=== PATIENT | female | born 1995 | race Caucasian/White ===

== ENCOUNTER 2018-08-05 16:20 | Outpatient (CLI) | payer MEDICAID ==
[2018-08-05 18:32] LABS: RUPTURE FETAL MEMBRANES NEGATIVE (NEGATIVE)
== END 2018-08-05 20:26 | disposition home or self-care (01) ==
LOC: OBT 16:20 → L-D 16:21 → OBT 20:26
DX: O62.9 Abnormality of forces of labor, unspecified (principal); Z3A.35 35 weeks gestation of pregnancy
CPT/HCPCS: 76815; 76818; 84112

== ENCOUNTER 2018-09-12 19:57 | Inpatient (IN) | payer MEDICAID ==
[2018-09-12] MEDS ORDERED: OXYTOCIN 30 UNITS/LR 500 ML IV ×5 (21:30→23:30)
[2018-09-12] MEDS ORDERED: METHYLERGONOVINE 0.2 MG INJ IM ×2 (21:30→23:30)
[2018-09-12] MEDS ORDERED: LACTATED RINGER'S 1,000 ML IV* (21:30)
[2018-09-12] MEDS ORDERED: BUTORPHANOL 2 MG INJ IV ×2 (21:30→23:30)
[2018-09-12] MEDS ORDERED: IBUPROFEN 600 MG TAB PO (21:30)
[2018-09-12] MEDS ORDERED: MISOPROSTOL 200 MCG TAB PR ×3 (21:30→23:30)
[2018-09-12] MEDS ORDERED: LIDOCAINE 1% (MPF) 30 ML INJ INJ ×4 (21:30→23:30)
[2018-09-12] MEDS ORDERED: CARBOPROST 250 MCG INJ IM ×3 (21:30→23:30)
[2018-09-12 22:23] LABS: ADD MAN DIFF? NO
[2018-09-12 22:40] LABS: BASOPHILS % 0.3 % (0.0-2.0); EOSINOPHILS % 0.3 % (0.0-7.0); HEMATOCRIT 34.4 % (37.0-47.0); HEMOGLOBIN 11.6 g/dl (12.0-16.0); LYMPHOCYTES # 2.2 10^3/ul (0.8-2.9); LYMPHOCYTES % 22.7 % (15.0-51.0); MEAN CORPUSCULAR HEMOGLOBIN 28.9 pg (29.0-33.0); MEAN CORPUSCULAR HGB CONC 33.7 g/dl (32.0-37.0); MEAN CORPUSCULAR VOLUME 85.8 fl (82.0-101.0); MEAN PLATELET VOLUME 10.1 fl (7.4-10.4); MONOCYTE # 0.7 10^3/ul (0.3-0.9); MONOCYTES % 7.6 % (0.0-11.0); NEUTROPHIL # 6.6 10^3/ul (1.6-7.5); NEUTROPHILS % 68.6 % (39.0-77.0); PLATELET COUNT 198 10^3/UL (140-415); RED BLOOD COUNT 4.01 10^6/ul (4.20-5.40); RED CELL DISTRIBUTION WIDTH 13.6 % (11.5-14.5)
[2018-09-12 22:40] LABS: WHITE BLOOD COUNT 9.6 10^3/ul (4.8-10.8)
[2018-09-12 22:42] LABS: PROTIME 12.2 Sec (11.9-14.9)
[2018-09-12 22:43] LABS: PARTIAL THROMBOPLASTIN TIME 27.3 Sec (23.0-35.0)
[2018-09-12 23:18] LABS: HEPATITIS B SURFACE ANTIGEN NEGATIVE (NEGATIVE)
[2018-09-12] MEDS: LACTATED RINGER'S 1,000 ML IV* (23:27)
[2018-09-12] MEDS: OXYTOCIN 30 UNITS/LR 500 ML IV (23:30)
[2018-09-12] MEDS ORDERED: IBUPROFEN 600 MG TAB GTB (23:30)
[2018-09-13] MEDS: LACTATED RINGER'S 1,000 ML IV* ×5 (04:21→23:30)
[2018-09-13] MEDS: LIDOCAINE 0.5% (SDV) 50 ML INJ INFIL (06:00)
[2018-09-13 15:40] LABS: AMPHETAMINE/METHAMPHETAMINE Negative (NEGATIVE); BARBITURATES Negative (NEGATIVE); BENZODIAZEPINES Negative (NEGATIVE); CANNABINOIDS Negative (NEGATIVE); COCAINE Negative (NEGATIVE); OPIATES Negative (NEGATIVE)
[2018-09-13] MEDS ORDERED: FENTAnyl 2MCG/ML-ROPIV 0.2% 100 ML (16:51)
[2018-09-13] MEDS ORDERED: NALOXONE (0.4 MG/ML) INJ IV (17:30)
[2018-09-13 18:53] LABS: RAPID PLASMA REAGIN NONREACTIVE (NR)
[2018-09-14] MEDS: FENTAnyl 2MCG/ML-ROPIV 0.2% 100 ML BAG EPI (00:23)
[2018-09-14] MEDS ORDERED: MINERAL OIL LIGHT 10 ML VIAL (04:51)
[2018-09-14] MEDS: OXYTOCIN 30 UNITS/LR 500 ML IV ×2 (05:41→10:19)
[2018-09-14] MEDS: METHYLERGONOVINE 0.2 MG INJ IM (05:47)
[2018-09-14] MEDS: LACTATED RINGER'S 1,000 ML IV* ×3 (07:30→15:30)
[2018-09-14] MEDS ORDERED: OXYTOCIN 30 UNITS/LR 500 ML IV (09:30)
[2018-09-14] MEDS ORDERED: CARBOPROST 250 MCG INJ IM (09:30)
[2018-09-14] MEDS ORDERED: ACETAMINOPHEN 325 MG TAB PO (09:30)
[2018-09-14] MEDS ORDERED: MISOPROSTOL 200 MCG TAB PR (09:30)
[2018-09-14] MEDS ORDERED: METHYLERGONOVINE 0.2 MG INJ IM (09:30)
[2018-09-14] MEDS ORDERED: HYDROCODONE/APAP (5/325) TAB PO (09:30)
[2018-09-14] MEDS: DIBUCAINE 1% 30 GM OINT PR (10:06)
[2018-09-14] MEDS: LANOLIN 7 GM TUBE TOP (10:06)
[2018-09-14] MEDS: WITCH HAZEL/GLYCERIN PAD PR (10:06)
[2018-09-14] MEDS: BENZOCAINE 20% 56 ML SPRAY TOP (10:06)
[2018-09-14] MEDS: IBUPROFEN 600 MG TAB PO ×3 (13:02→23:37)
[2018-09-14] MEDS: SENNA/DOCUSATE NA (8.6MG/50MG) TAB PO (21:31)
[2018-09-15] MEDS: IBUPROFEN 600 MG TAB PO ×4 (05:43→23:47)
[2018-09-15 07:32] LABS: ADD MAN DIFF? NO
[2018-09-15 07:35] LABS: WHITE BLOOD COUNT 13.3 10^3/ul (4.8-10.8)
[2018-09-15 07:35] LABS: BASOPHILS % 0.3 % (0.0-2.0); EOSINOPHILS # 0.1 10^3/ul (0.0-0.5); EOSINOPHILS % 0.9 % (0.0-7.0); HEMOGLOBIN 10.5 g/dl (12.0-16.0); LYMPHOCYTES # 3.6 10^3/ul (0.8-2.9); LYMPHOCYTES % 27.3 % (15.0-51.0); MEAN CORPUSCULAR HEMOGLOBIN 28.8 pg (29.0-33.0); MEAN CORPUSCULAR HGB CONC 32.8 g/dl (32.0-37.0); MEAN CORPUSCULAR VOLUME 87.9 fl (82.0-101.0); MEAN PLATELET VOLUME 9.9 fl (7.4-10.4); MONOCYTE # 0.9 10^3/ul (0.3-0.9); MONOCYTES % 6.7 % (0.0-11.0); NEUTROPHIL # 8.6 10^3/ul (1.6-7.5); NEUTROPHILS % 64.4 % (39.0-77.0); PLATELET COUNT 207 10^3/UL (140-415); RED BLOOD COUNT 3.64 10^6/ul (4.20-5.40); RED CELL DISTRIBUTION WIDTH 14.4 % (11.5-14.5)
[2018-09-15] MEDS: SENNA/DOCUSATE NA (8.6MG/50MG) TAB PO ×2 (09:00→21:00)
[2018-09-16] MEDS: IBUPROFEN 600 MG TAB PO ×3 (05:53→18:00)
[2018-09-16] MEDS: SENNA/DOCUSATE NA (8.6MG/50MG) TAB PO (09:00)
[2018-09-16] MEDS: DIPHTH/TET/ACEL PERTUSS (ADULT) 0.5 ML VIAL IM* (09:00)
== END 2018-09-16 20:30 | disposition home or self-care (01) | DRG 806 ==
LOC: PP1 09-14 08:43 → L-D 19:57
PROVIDERS: Obstetrics & Gynecology
PROC: 10E0XZZ Delivery of Products of Conception, External Approach (ICD-10-PCS; principal; 2018-09-14)
PROC: 0UQGXZZ Repair Vagina, External Approach (ICD-10-PCS; 2018-09-14)
DX: O69.81X0 Labor and delivery complicated by cord around neck, without compression, not applicable or unspecified (principal); O71.4 Obstetric high vaginal laceration alone; Z37.0 Single live birth; Z3A.41 41 weeks gestation of pregnancy
CPT/HCPCS: 62319; 80307; 85025; 85610; 85730; 86592; 86850; 86900; 86901; 87340; 90715